=== PATIENT | male | born 1940 | race Caucasian/White ===

== ENCOUNTER 2017-08-30 10:24 | Outpatient (CLI) | payer MEDICARE | END 2017-08-30 10:25 | disposition home or self-care (01) | LOC: BICRAD 10:24 | PROVIDERS: ATTEND Internal Medicine Cardiovascular Disease | DX: R06.09 Other forms of dyspnea (principal) | CPT/HCPCS: 71046 ==

== ENCOUNTER 2018-06-13 12:53 | Outpatient (CLI) | payer MEDICARE ==
--- NOTE | 2018-06-13 14:23 | RAD ---
CHEST TWO VIEWS: Date: 06-13-18 Comparison: 08-30-17 History: Dyspnea. FINDINGS: Mild increased linear interstitial density noted in the perihilar region in both lung bases, right gr eater than left, similar when compared to prior imaging. Stable midline sternotomy wires noted. Incom pletely assessed cervical spine post-operative hardware is present. The lungs are hyperinflated, cons istent with air trapping. Findings suggest COPD in the proper clinical setting. No lobar consolidatio n or alveolar edema. IMPRESSION: Chronic findings as detailed above. POS: [facility]
--- NOTE | 2018-06-13 14:31 | RAD ---
LUMBAR SPINE COMPLETE WITH BENDING: HISTORY: Acute bilateral low back pain with sciatica. COMPARISON: None. FINDINGS: There is moderate narrowing of L4-5 and L5-S1 disk spaces. There is marked narrowing of the L3-4 and L4-5 interspinous spaces. Moderate vascular calcifications of the distal abdominal aorta. There is L4-5 and L5-S1 facet arthro luiz bilaterally. No significant listhesis. No translation with flexion or extension. IMPRESSION: Moderate spondylosis lower lumbar spine. No significant translation with flexion or extension. POS: [facility]
== END 2018-06-13 12:54 | disposition home or self-care (01) ==
LOC: BICRAD 12:53
PROVIDERS: ATTEND Family Medicine
DX: M54.5 Low back pain (principal); R06.02 Shortness of breath; M47.816 Spondylosis without myelopathy or radiculopathy, lumbar region; R91.8 Other nonspecific abnormal finding of lung field
CPT/HCPCS: 36415; 71046; 72100; 80048; 82607; 82728; 82746; 84439; 84443; 85025

== ENCOUNTER 2020-09-18 10:19 | Outpatient (CLI) | payer MEDICARE | END 2020-09-18 10:20 | disposition home or self-care (01) | LOC: BICRAD 10:19 | PROVIDERS: ATTEND Internal Medicine Critical Care Medicine | DX: R06.00 Dyspnea, unspecified (principal); I70.0 Atherosclerosis of aorta; R91.8 Other nonspecific abnormal finding of lung field | CPT/HCPCS: 71046 ==

== ENCOUNTER 2022-09-20 08:13 | Outpatient (CLI) | payer MEDICARE | END 2022-09-20 08:14 | disposition home or self-care (01) | LOC: RAD 08:13 | PROVIDERS: ATTEND Internal Medicine Critical Care Medicine | DX: R06.00 Dyspnea, unspecified (principal); J44.9 Chronic obstructive pulmonary disease, unspecified | CPT/HCPCS: 71046 ==